=== PATIENT | female | born 1945 | race Caucasian/White ===

== ENCOUNTER 2022-04-15 07:25 | Day surgery (SDC) | payer MEDICARE, BC ==
[2022-04-10 15:03] LABS: BASOPHILS % (AUTO) 0.5 % (0-1); EOSINOPHILS % (AUTO) 0.1 % (0-6); LYMPHOCYTES # (AUTO) 2.1 X10'3 (1.1-4.8); LYMPHOCYTES % (AUTO) 23.7 % (21-51); MEAN CORPUSCULAR HEMOGLOBIN 34.2 PG (27.0-31.0); MEAN CORPUSCULAR VOLUME 103.5 FL (78-98); MEAN PLATELET VOLUME 8.3 FL (7.4-10.4); MONOCYTES # (AUTO) 0.4 X10'3 (0-0.9); MONOCYTES % (AUTO) 5.2 % (2-12); NEUTROPHILS # (AUTO) 6.1 X10'3 (1.8-7.7); NEUTROPHILS % (AUTO) 70.5 % (42-75); PRE OP HEMOGLOBIN 13.9 g/dL (12.0-16.0); PRE OP PLATELET COUNT 363 X10'3 (140-440); RED BLOOD COUNT 4.06 X10'6 (4.20-5.60); RED CELL DISTRIBUTION WIDTH 14.9 % (11.5-14.5)
[2022-04-10 15:22] LABS: ALBUMIN 3.5 G/DL (3.4-5.0); ALKALINE PHOSPHATASE 86 IU/L (46-116); BLOOD UREA NITROGEN 15 MG/DL (7-18); BUN/CREATININE RATIO 15.2 (6.6-38.0); CALCIUM 8.7 MG/DL (8.5-10.1); CHLORIDE 101 MMOL/L (99-107); CREATININE 0.99 MG/DL (0.40-0.90); PRE OP ALT 22 U/L (30-65); PRE OP ANION GAP 12 (8-16); PRE OP AST 17 U/L (10-37); PRE OP BILIRUB, TOTAL 0.2 MG/DL (0.0-1.0); PRE OP GLUCOSE 145 MG/DL (70-104); PRE OP SODIUM 139 MMOL/L (135-145); TOTAL CARBON DIOXIDE 26.1 MMOL/L (24-32); TOTAL PROTEIN 6.9 G/DL (6.4-8.2); eGFR 55 ML/MIN
[~2022-04-15] VITALS: Ht 154.9 cm; Wt 57.0 kg
[~2022-04-15 07:25] MED LIST: ALLO100T PO; AMLO5TAB16 PO; ATOR20TA66 PO; BUPIVAcaine/PF 2.5mg/ml (0.25%) 10ml vial ONE; ESOM40CA54 PO; HYDR-3972 PO; METF-1203 PO; RALO60TA13 PO; TIZA-205 PO; TRAZ150T78 PO; VALS80TA32 PO; famotidine 20mg tablet PO ONE; ringers solution, lacted 1,000 ML IV SCH
[2022-04-15] MEDS ORDERED: ceFAZolin 2gm in dextrose, iso 100 ML IV ONE (08:30)
[2022-04-15 09:00] VITALS: BP 145/81
[2022-04-15] MEDS ORDERED: LIDOcaine 0.5% (5mg/ml) 50ml vial ONE ×2 (09:14→11:03)
[2022-04-15] MEDS ORDERED: midazolam 1 mg/ML 2ml injection ONE (10:50)
[2022-04-15] MEDS ORDERED: fentaNYL/PF 50MCG/1 ML 2ML syringe ONE (10:50)
[2022-04-15] MEDS ORDERED: BUPIVAcaine/PF 2.5mg/ml (0.25%) 10ml vial ONE (10:59)
[2022-04-15 11:30] VITALS: BP 143/83
--- NOTE | 2022-04-15 11:30 | NUR ---
Received from OR via [facility], accompanied by Anesthesiologist and report given by NICHOLAS Anesthesiologist. PATIENT WAKING UP, NO S/S OF PAIN, V/S WNL, PIV 20G TO RUE, LEFT WRIST DRESSING CDI. ICE AND ELEVATED LUE. Addendum: 04/15/22 at 1140 by Wes Arvizu RN Amended: Links added. Addendum: 04/15/22 at 1212 by Wes Arvizu RN Received from OR via [facility], accompanied by Anesthesiologist and report given by NICHOLAS Anesthesiologist. PATIENT WAKING UP, NO S/S OF PAIN, V/S WNL, PIV 20G TO RUE, LEFT ELBOW DRESSING CDI. ICE AND ELEVATED LUE.
[2022-04-15 11:40] VITALS: BP 140/85
[2022-04-15 11:50] VITALS: BP 153/83
[2022-04-15 12:00] VITALS: BP 147/84
[2022-04-15 12:10] VITALS: BP 145/85
--- NOTE | 2022-04-15 12:15 | NUR ---
ALL DISCHARGE CRITERIA HAS BEEN MET. VSS, PAIN AT A TOLERABLE LEVEL, VOIDING AND ABLE TO SAFELY AMBULATE AND TRANSFER SELF. IV TAKEN OUT WITHOUT ANY COMPLICATIONS. ALL DISCHARGE INSTRUCTIONS COVERED WITH PATIENT AND ALL QUESTIONS ANSWERED. PATIENT TAKEN OUT VIA WHEELCHAIR WITH ALL BELONGINGS TO PERSONAL VEHICLE WHERE FAMILY DROVE PATIENT HOME. Addendum: 04/15/22 at 1223 by Wes Arvizu RN Amended: Links added.
== END 2022-04-15 12:15 | disposition home or self-care (01) ==
LOC: PAS 07:25
PROVIDERS: ATTEND Orthopaedic Surgery Hand Surgery
DX: G56.22 Lesion of ulnar nerve, left upper limb (principal); K21.9 Gastro-esophageal reflux disease without esophagitis; M10.9 Gout, unspecified; I10 Essential (primary) hypertension; E78.00 Pure hypercholesterolemia, unspecified; D64.9 Anemia, unspecified; F17.210 Nicotine dependence, cigarettes, uncomplicated; Z88.6 Allergy status to analgesic agent; Z88.8 Allergy status to other drugs, medicaments and biological substances; E11.9 Type 2 diabetes mellitus without complications; Z91.09 Other allergy status, other than to drugs and biological substances; Z91.012 Allergy to eggs; Z79.899 Other long term (current) drug therapy; Z98.890 Other specified postprocedural states
CPT/HCPCS: 36415; 64718; 80053; 82948; 85025; 87811; 93005; J2250; J3010; J3490; J7030; J7120; Z7506; Z7512; A4215; A6449; J0690